=== PATIENT | male | born 2005 | race Caucasian/White ===

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

== ENCOUNTER 2025-06-12 13:13 | Emergency (ER) | payer BC, SELFPAY ==
--- NOTE | 2025-06-12 14:03 | ED.GENADULT ---
HPI - General Adult General Chief complaint: Upper Respiratory Infection Stated complaint: INJURED FACE Time Seen by Provider: 06/12/25 13:38 Source: patient and RN notes reviewed Mode of arrival: ambulatory Limitations: no limitations History of Present Illness HPI narrative: 19-year-old male patient presents today complaining of left lower jaw pain and facial swelling. States he fell down some stairs last night and struck his face on a bannister and had LOC for a few mins. Reports the fall was not witnessed. States now he cannot open his mouth fully, that it pops when he tries to open it, and that his teeth are malaligned. Currently rates his pain 01/19. Took some motrin and a xanax around 0900 this morning. Denies headache, neck pain, dizziness, lightheadedness, vision changes, or any other additional symptoms. Related Data Home Medications ?Medication ?Instructions ?Recorded ?Confirmed ?Last Taken ?Type No Home Medications 12/15/21 06/12/25 Unknown History Allergies Allergy/AdvReac Type Severity Reaction Status Date / Time No Known Allergies Allergy Verified 06/12/25 13:24 [facility] Past Medical History Medical History (Updated 06/12/25 @ 14:03 by Masha Rivera, ANALYST COMPETITIVE INTELLIGENCE, WEIGHT RECORDER) No active medical problems Surgical History Surgical History (Updated 12/15/21 @ 14:53 by Juarez ReddyMD) No pertinent past surgical history Social History Social History (Updated 12/15/21 @ 14:54 by Juarez ReddyMD) Smoking status: Never smoker Comments At time of signature, I have reviewed and agree with nursing past medical, surgical, social and family history unless otherwise noted. Please see nursing chart for further information. There is no relevant family history pertinent to the presenting complaint Exam Narrative: GENERAL: Well-appearing, well-nourished, and in no acute distress. HEAD: Normocephalic, atraumatic. EYES: EOMI. No redness or drainage. Conjunctivae normal. Orbits nontender. Nose nontender. ENT: Mucous membranes pink and moist. Nares clear. No rhinorrhea. Moderate swelling to the left lower jaw line with TTP. Crepitus with movement of the mandible. Right jaw nontender. Teeth are malaligned. Ecchymosis to the left inner cheek. Patient can only open his mouth appox 1 fingerbreadth. NECK: Normal AROM. Neck is nontender. CHEST: No respiratory distress. EXTREMITIES: Normal range of motion. No edema. SKIN: Warm, dry, no rash. Capillary refill normal. Normal skin turgor. NEURO: No focal deficits. Alert and oriented x3. Gait steady. PSYCH: Normal affect. No signs of depression or anxiety. Course Course Level of Care: Express Care Visit Vital Signs Vital signs: Vital Signs Temperature 97.7 F 06/12/25 14:04 Pulse Rate 120 H 06/12/25 14:04 Respiratory Rate 16 06/12/25 14:04 Blood Pressure 129/80 06/12/25 14:04 Pulse Oximetry 100 06/12/25 14:04 Temperature 97.7 F 06/12/25 14:04 Pulse Rate 120 H 06/12/25 14:04 Respiratory Rate 16 06/12/25 14:04 Blood Pressure 129/80 06/12/25 14:04 Pulse Oximetry 100 06/12/25 14:04 Reviewed Transfer Transfered to: [facility] Transportation: Other (private vehicle) Transfer rationale: facial trauma, r/o jaw fracture Accepting physician: Unable to provide. Report given to ROXY Vanessa in ER Medical Decision Making MDM Narrative Medical decision making narrative: 19-year-old male patient presents today complaining of left lower jaw pain and facial swelling. States he fell down some stairs last night and struck his face on a bannister and had LOC for a few mins. Reports the fall was not witnessed. States now he cannot open his mouth fully, that it pops when he tries to open it, and that his teeth are malaligned. Currently rates his pain 6/10. Took some motrin and a xanax around 0900 this morning. Upon exam, Moderate swelling to the left lower jaw line with TTP. Crepitus with movement of the mandible. Right jaw nontender. Teeth are malaligned. Ecchymosis to the left inner cheek. Patient can only open his mouth appox 1 fingerbreadth. Called the ED at [facility] and spoke with Dr. Allen. States that patient will be sent to [facility] hospital if jaw is broken. Recommend giving patient option of direct transfer there for evaluation. After discussion with [facility] staff, they state they do not have Maxillofacial services and that [facility] has those services. Patient will be transferred there. Report given to ED RN. VSS, patient mildly tachycardic, likely due to anxiety/pain. Patient agrees with plan. Differential Diagnosis Differential Diagnosis: Jaw fracture, dental fracture, mandible dislocation Vital Signs Vital Signs: Vital Signs Temperature 97.7 F 06/12/25 14:04 Pulse Rate 120 H 06/12/25 14:04 Respiratory Rate 16 06/12/25 14:04 Blood Pressure 129/80 06/12/25 14:04 Pulse Oximetry 100 06/12/25 14:04 Temperature 97.7 F 06/12/25 14:04 Pulse Rate 120 H 06/12/25 14:04 Respiratory Rate 16 06/12/25 14:04 Blood Pressure 129/80 06/12/25 14:04 Pulse Oximetry 100 06/12/25 14:04 Critical Care Time Critical Care Time Critical Care Time: No Discharge Plan Discharge Clinical Impression: Fall (on) (from) other stairs and steps, initial encounter Injury of jaw Qualifiers: Encounter type: initial encounter Qualified Code(s): S09.93XA - Unspecified injury of face, initial encounter Patient Disposition: Acute Care Hospital Condition: Stable Patient Language: German Prescriptions: No Action No Home Medications Follow-up/Referrals: PHYSICIAN,REIMBURSEMENT REPRESENTATIVE [Primary Care Provider, Internal Medicine] Time of Disposition: 14:03
[2025-06-12 14:04] VITALS: BP 129/80; PULSE 120; RESP 16; TEMP 36.5; O2SAT 100
== END 2025-06-12 14:05 | disposition short-term general hospital (02) ==
PROVIDERS: Emergency Provider Nurse Practitioner
DX: S09.93XA Unspecified injury of face, initial encounter (principal); W10.9XXA Fall (on) (from) unspecified stairs and steps, initial encounter
CPT/HCPCS: 99212; G0463